=== PATIENT | male | born 1970 | race Caucasian/White ===

== ENCOUNTER 2017-06-16 13:27 | Emergency (ER) | payer OTHER ==
--- NOTE | 2017-06-16 16:07 | C.PDOC ---
History Of Present Illness 47 y/o male [facility] Patient fell according to bystanders. Patient denies any active physical complaints. (Abby Merino) History Per: Patient History/Exam Limitations: no limitations Onset/Duration Of Symptoms: Hrs Time Seen by Provider: 06/16/17 13:44 Chief Complaint (Nursing): Substance Abuse Past Medical History Reviewed: Historical Data, Nursing Documentation, Vital Signs - Medical History PMH: No Chronic Diseases Surgical History: No Surg Hx Family History: States: No Known Family Hx - Social History Hx Alcohol Use: Yes Hx Substance Use: Yes Vital Signs: Last Vital Signs Temp 97.9 F 06/16/17 13:38 Pulse 88 06/16/17 20:05 Resp 20 06/16/17 20:05 BP 116/74 06/16/17 20:05 Pulse Ox 95 06/16/17 20:05 Review Of Systems Constitutional: Negative for: Fever, Chills Physical Exam - Physical Exam Appears: Other (patient is sleepy but arousable, unkempt) Skin: Normal Color, Warm Head: Atraumatic, Normacephalic Eye(s): bilateral: Normal Inspection Oral Mucosa: Other (odor of ETOH on breath) Neck: Supple Chest: Symmetrical Cardiovascular: No Rhythm Irregular, No Murmur Respiratory: No Decreased Breath Sounds, No Accessory Muscle Use, No Rales, No Rhonchi, No Wheezing Neurological/Psych: Oriented x3, Normal Speech ED Course And Treatment O2 Sat by Pulse Oximetry: 95 (RA) Pulse Ox Interpretation: Normal - CT Scan/US Head CT Other Rad Studies (CT/US): Read By Radiologist CT/US Interpretation: PROCEDURE: CT HEAD WITHOUT CONTRAST. HISTORY: etoh abuse fall. COMPARISON: None available. TECHNIQUE: Axial computed tomography images were obtained through the head/brain without intravenous contrast. Radiation dose: Total exam DLP = 918.71 mGy-cm. This CT exam was performed using one or more of the following dose reduction techniques: Automated exposure control, adjustment of the mA and/or kV according to patient size, and/or use of iterative reconstruction technique. FINDINGS: HEMORRHAGE: No intracranial hemorrhage. BRAIN: No mass effect or edema. Mild scattered white matter hypodensities, which are nonspecific, but often seen with chronic microvascular ischemic disease. Please note that MRI with diffusion imaging is more sensitive in the detection of acute ischemic event. VENTRICLES: No hydrocephalus. CALVARIUM: Unremarkable. PARANASAL SINUSES: Small fluid left maxillary sinus. The remainder the visualized paranasal sinuses appear clear. MASTOID AIR CELLS: Unremarkable as visualized. No inflammatory changes. OTHER FINDINGS: Left frontal scalp soft tissue swelling. Suspect age indeterminate bilateral nasal bone fractures, likely chronic ; correlate clinically. IMPRESSION: Left frontal scalp soft tissue swelling. Mild scattered nonspecific white matter changes. Suspect age indeterminate bilateral nasal bone fractures, likely chronic ; correlate clinically. Progress Note: Head CT ordered. Progress - Re-Evaluation Re-evaluation Note: 06/16/17 20:40 REPEAT BREATHYLYZER 237 (Lore Berrios) Medical Decision Making Medical Decision Making: pt with etoh, sleeping, more easily aroused now than on arrival. head ct neg, continue to observe for sobriety. 705 pm., pt more easily aroused, unsteady gasit, s/o to Dr Yash d.c when sober. 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 - Scribe Statement The provider has reviewed the documentation as recorded by the Scribe - Scribe Statement Kaykay Holland Provider Attestation All medical record entries made by the Scribe were at my direction and personally dictated by me. I have reviewed the chart and agree that the record accurately reflects my personal performance of the history, physical exam, medical decision making, and the department course for this patient. I have also personally directed, reviewed, and agree with the discharge instructions and disposition. (Abby Merino)
--- NOTE | 2017-06-16 16:20 | CT ---
PROCEDURE: CT HEAD WITHOUT CONTRAST. HISTORY: etoh abuse fall COMPARISON: None available. TECHNIQUE: Axial computed tomography images were obtained through the head/brain without intravenous contrast. Radiation dose: Total exam DLP = 918.71 mGy-cm. This CT exam was performed using one or more of the following dose reduction techniques: Automated exposure control, adjustment of the mA and/or kV according to patient size, and/or use of iterative reconstruction technique. FINDINGS: HEMORRHAGE: No intracranial hemorrhage. BRAIN: No mass effect or edema. Mild scattered white matter hypodensities, which are nonspecific, but often seen with chronic microvascular ischemic disease. Please note that MRI with diffusion imaging is more sensitive in the detection of acute ischemic event. VENTRICLES: No hydrocephalus. CALVARIUM: Unremarkable. PARANASAL SINUSES: Small fluid left maxillary sinus. The remainder the visualized paranasal sinuses appear clear. MASTOID AIR CELLS: Unremarkable as visualized. No inflammatory changes. OTHER FINDINGS: Left frontal scalp soft tissue swelling. Suspect age indeterminate bilateral nasal bone fractures, likely chronic ; correlate clinically. IMPRESSION: Left frontal scalp soft tissue swelling. Mild scattered nonspecific white matter changes. Suspect age indeterminate bilateral nasal bone fractures, likely chronic ; correlate clinically.
[2017-06-17 05:49] VITALS: TEMP 98.5
[2017-06-17 07:00] VITALS: BP 118/72; PULSE 73; RESP 20; O2SAT 98
== END 2017-06-17 06:50 | disposition home or self-care (01) ==
LOC: C.ER 13:27
DX: F10.129 Alcohol abuse with intoxication, unspecified (principal); Y90.9 Presence of alcohol in blood, level not specified
CPT/HCPCS: 70450; 82948; 96372; 99285; J2060; J2550